=== PATIENT | female | born 1935 | race Caucasian/White ===

== ENCOUNTER 2017-03-14 04:59 | Inpatient (IN) | payer MEDICARE, MEDICAID ==
[2017-03-14] MEDS ORDERED: Scopolamine 1.5 MG Transdermal Patch TOP SCH (05:30)
[2017-03-14] MEDS ORDERED: Gabapentin 300 MG Cap PO ONE (05:30)
[2017-03-14] MEDS: Lactated Ringers 1,000 ML IV SCH ×3 (06:07→23:46)
[2017-03-14] MEDS ORDERED: Povidone-Iodine 10% Soln 118.25 ML Bottle ONE (06:32)
[2017-03-14] MEDS ORDERED: Thrombin (Bovine) 5,000 Unit Kit ONE (06:32)
[2017-03-14] MEDS ORDERED: Rocuronium 50 MG/5 ML Vial ONE (06:59)
[2017-03-14] MEDS ORDERED: Neostigmine Methylsulfate 1 MG/ML 5 ML Syringe ONE (06:59)
[2017-03-14] MEDS ORDERED: Glycopyrrolate 0.2 MG/ML 5 ML MDV ONE (06:59)
[2017-03-14] MEDS ORDERED: Ondansetron 4 MG/2 ML SDV ONE (06:59)
[2017-03-14] MEDS ORDERED: Dexamethasone 4 MG/ML SDV ONE (06:59)
[2017-03-14] MEDS ORDERED: Propofol 200 MG/20 ML SDV ONE (06:59)
[2017-03-14] MEDS ORDERED: Succinylcholine 200 MG/10 ML MDV ONE (06:59)
[2017-03-14] MEDS ORDERED: fentaNYL 250 MCG/5 ML SDV ONE (07:00)
[2017-03-14] MEDS ORDERED: ceFAZolin 2 GM in Sodium Chloride 0.9% 50 ML IV ONE (07:15)
[2017-03-14] MEDS ORDERED: Albuterol/Ipratropium 3.0-0.5 MG/3 ML Neb Soln NEB ONE (07:17)
[2017-03-14] MEDS ORDERED: Albuterol/Ipratropium 3.0-0.5 MG/3 ML Neb Soln ONE (07:19)
[2017-03-14] MEDS ORDERED: Ropivacaine 49.25 ML, Ketorolac 30 MG, EPINEPHrine 0.5 MG, cloNIDine 80 MCG, Sodium Chl... INJECT ONE ×5 (07:45)
[2017-03-14] MEDS ORDERED: Ketamine 500 MG/5 ML MDV IV SCH (07:45)
[2017-03-14] MEDS ORDERED: Naloxone 0.4 MG/ML SDV IVPUSH PRN ×2 (08:45→09:40)
[2017-03-14] MEDS ORDERED: Magnesium Hydroxide 400 MG/5 ML Susp 30 ML Cup PO PRN ×2 (08:45→09:40)
[2017-03-14] MEDS ORDERED: Sennosides 8.6 MG Tab PO PRN ×2 (08:45→09:40)
[2017-03-14] MEDS ORDERED: oxyCODONE 5 MG Tab PO PRN (08:45)
[2017-03-14] MEDS ORDERED: Zolpidem 5 MG Tab PO PRN ×2 (08:45→09:40)
[2017-03-14] MEDS ORDERED: HYDROmorphone 1 MG/ML Syringe IVPUSH PRN ×2 (08:45→09:40)
[2017-03-14] MEDS ORDERED: ceFAZolin 1 GM in Sodium Chloride 0.9% 50 ML IV SCH (08:45)
[2017-03-14] MEDS ORDERED: Aluminum Hydroxide/Magnesium Hydroxide/Simethicone Susp 30 ML Cup PO PRN ×2 (08:45→09:40)
[2017-03-14] MEDS ORDERED: Ondansetron 4 MG/2 ML SDV IVPUSH PRN ×2 (08:45→09:40)
[2017-03-14] MEDS ORDERED: ZOLPIDEM TARTRATE PO PRN ×2 (08:49→09:40)
[2017-03-14] MEDS ORDERED: METOPROLOL TARTRATE PO SCH (09:00)
[2017-03-14] MEDS ORDERED: Lisinopril 20 MG Tab PO SCH ×2 (09:00→09:45)
[2017-03-14] MEDS ORDERED: Albuterol/Ipratropium 3.0-0.5 MG/3 ML Neb Soln NEB SCH (09:00)
[2017-03-14] MEDS ORDERED: ROSUVASTATIN PO SCH (09:00)
[2017-03-14] MEDS ORDERED: Non-Formulary Medication 1 Each (Omega-3/Dha/Epa/Fish Oil [Omega-3 Fish Oil 1,000 Mg Sfgl] PO SCH (09:00)
[2017-03-14] MEDS ORDERED: amLODIPine 5 MG Tab PO SCH (09:00)
[2017-03-14] MEDS ORDERED: Non-Formulary Medication 1 Each (Multivitamin [Multivitamins] 1 TAB) PO SCH (09:00)
[2017-03-14] MEDS ORDERED: Acetaminophen 1,000 MG in Premix Bag 1 BAG IV ONE (09:30)
[2017-03-14] MEDS ORDERED: Diazepam 5 MG Tab PO PRN (09:40)
--- NOTE | 2017-03-14 09:42 | OR ---
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 PROCEDURE: L2-3 L laminectomy. TRAFFIC RECORDER: ERLIN Jim ANESTHESIA: General endotracheal intubation. FLUIDS: Lactated Ringer solution. ESTIMATED BLOOD LOSS: 25 mL. COMPLICATIONS: None. SPECIMEN: None. DISCHARGE DISPOSITION: Stable to PACU. INDICATION: The patient was seen preoperatively in the clinic. She had been suffering from neurogenic claudication and radicular symptoms. Preoperative imaging confirmed the above- mentioned diagnosis. Risks and benefits of the procedure were explained to the patient and informed consent was obtained. She had failed nonoperative treatment. DETAILS OF PROCEDURE: The patient was seen preoperatively by myself and the Anesthesia staff at the preoperative holding area. She received a nebulizer prior to being taken back to the OR. She was taken back to the OR by the Anesthesia staff, where general anesthesia was administered. She was then placed into a prone position on the Eron table. All extremities were found to be well padded. The bed was flexed. The back was then prepped and draped in a sterile manner. Time-out was called identifying the correct patient, the correct procedure and the correct site, and that antibiotics had begun within appropriate period of time. The sterilely draped fluoroscopy unit was then used in a lateral position to identify the L2-3 interspace. This was then marked. I then did a midline incision over the L2 and L3 spinous processes and then used Nyasia for retractor. Bleeding during the case was controlled with Bovie electrocautery as well as an Aquamantys 5.0 unit. I then used Bovie dissection with a Culp elevator over the spinous processes of L2 and L3 and over to their facets. I then inserted two 35 mm VersaTREK blades for retraction. I then confirmed my level with lateral fluoroscopy. I then removed the inferior spinous process of L2 and most of the superior spinous process of L3 as lamina. I removed most of the L2 lamina. I then encountered abundant ligamentum flavum, which was protecting the dura as well as significant epidural lipomatosis. We then removed as much of the ligamentum flavum as possible and then placed a long ball in the L2-3 foramina and took our confirmation films. I then copiously irrigated with saline, placed some FloSeal at the base of the wound and then gently tamped that with an open Ray-Lala. I then placed Gelfoam powder in the wound. We then closed the incision with #1 Stratafix as well as 3-0 Stratafix, followed by a sterile dressing. The patient was then flipped back into her hospital bed in supine position and taken to the PACU in a stable condition. Alex Lara DO /[id number]
[2017-03-14] MEDS ORDERED: Multivitamins with Iron/Calcium/Folic Acid/Minerals Tab PO SCH (09:45)
[2017-03-14] MEDS ORDERED: Rosuvastatin 10 MG Tab PO SCH (09:45)
[2017-03-14] MEDS ORDERED: Fish Oil/Omega-3 Fatty Acids 1 Gm Cap PO SCH (09:45)
[2017-03-14] MEDS: Levothyroxine 75 MCG Tab PO SCH (11:51)
[2017-03-14] MEDS: oxyCODONE 5 MG Tab PO PRN (12:47)
[2017-03-14] MEDS: Albuterol/Ipratropium 3.0-0.5 MG/3 ML Neb Soln NEB SCH ×4 (13:14→21:51)
[2017-03-14] MEDS: VERIFY SCOPOLAMINE PATCH TOP SCH (14:20)
[2017-03-14] MEDS: ceFAZolin 1 GM in Premix Bag 1 BAG IV SCH ×2 (14:24→21:51)
[2017-03-14] MEDS: Isosorbide Dinitrate 10 MG Tab PO SCH (16:45)
[2017-03-14] MEDS ORDERED: Metoprolol Tartrate 50 MG Tab PO SCH (21:00)
[2017-03-15] MEDS: Albuterol/Ipratropium 3.0-0.5 MG/3 ML Neb Soln NEB SCH ×3 (01:45→10:40)
[2017-03-15] MEDS: ceFAZolin 1 GM in Premix Bag 1 BAG IV SCH (05:04)
[2017-03-15] MEDS: oxyCODONE 5 MG Tab PO PRN (07:17)
[2017-03-15] MEDS: Isosorbide Dinitrate 10 MG Tab PO SCH (07:31)
[2017-03-15] MEDS: Levothyroxine 75 MCG Tab PO SCH (07:31)
[2017-03-15] MEDS: VERIFY SCOPOLAMINE PATCH TOP SCH (08:42)
[2017-03-15] MEDS ORDERED: Acetaminophen/oxyCODONE 325-5 MG Tab PO PRN ×2 (08:46→14:00)
[2017-03-15] MEDS ORDERED: Aspirin 81 MG Tab.EC PO SCH (09:00)
[2017-03-15] MEDS ORDERED: amLODIPine 5 MG Tab PO SCH (09:00)
[2017-03-15] MEDS ORDERED: Clopidogrel 75 MG Tab PO SCH (09:00)
--- NOTE | 2017-03-15 10:08 | CR ---
Cardiomegaly. Streaky densities within the lung bases have developed in may indicate infiltrate. Trac e pleural effusions. Mildly prominent perivascular congestion. Difficult to exclude a pulmonary nodul e right lung base. Recommend CT follow-up.
[2017-03-15] MEDS ORDERED: Sodium Chloride 0.9% 10 ML Syringe FLUSH PRN (11:00)
[2017-03-15] MEDS ORDERED: Iopamidol 755 Mg/ML 100 ML Bottle IV SCH (11:00)
[2017-03-15 11:27] VITALS: BP 107/57
--- NOTE | 2017-03-15 11:43 | CT ---
CTA chest. Total DLP 337. Findings: No pulmonary artery embolus. Upper limits of normal right hilar lymph node. Streaky densiti es within the bilateral lung bases more evident in the left than the right. Adrenal gland thickening. Proteinaceous cyst left kidney. Nodular masslike density projecting off the inferior aspect of the r ight lobe of the liver at 11 mm. Coronary artery calcifications. Atherosclerotic aorta. Impression: 1. No pulmonary artery embolus. 2. Upper limits of normal in size right hilar lymph node. 3. Streaky densities within the lung bases. Likely atelectasis. Developing infiltrate difficult to ex clude left lung base. 4. Small nodular density is indeterminate off the right lobe the liver. Consider nonemergent ultrasou nd follow-up.
--- NOTE | 2017-03-15 12:19 | PCM.CONS ---
H&P History of Present Illness - General Date of Service: 03/15/17 Admit Problem/Dx: Admission Diagnosis/Problem Admission Diagnosis/Problem Lumbar back pain with radiculopathy affecting left lower extremity Source of Information: Patient, Family, Provider, RN Notes Reviewed History Limitations: Reports: No Limitations - History of Present Illness Initial Comments - Free Text/Narative: Ms. Reynolds is an 81-year-old woman who I been asked to see by Dr. Rudi Lara for further suggestions concerning evaluation and management of hypoxia. She underwent a lumbar laminectomy yesterday performed by Dr. Lara. Thus far during her hospitalization has been noted to have significant hypoxia requiring the use of supplemental oxygen. At the present time she denies that she is having shortness of breath that is any different from her ongoing baseline. She reports at home that she becomes short of breath with fairly minimal exertion. She has been hemodynamically stable and afebrile, there is no evidence of fever or productive cough. She has 100 pack year smoking history and continued to smoke up until the time of this admission. Chest x-ray shows no obvious infiltrates and arterial blood gases showed no evidence of CO2 retention. CT scan of the chest was obtained and shows no evidence of pulmonary embolism or significant infiltrate. Lower Back Pain Score (Numeric/FACES): 6 - Related Data Allergies/Adverse Reactions: Allergies Allergy/AdvReac Type Severity Reaction Status Date / Time Sulfa (Sulfonamide Allergy Intermediate Swelling Verified 03/14/17 05:49 Antibiotics) Home Medications: Home Meds Acetaminophen [Tylenol Arthritis] 1 tab PO Q6H PRN 02/27/17 [History] Aspirin [Halfprin] 1 tab PO DAILY 02/27/17 [History] Clopidogrel [Plavix] 1 tab PO DAILY 02/27/17 [History] Isosorbide Dinitrate [Isordil] 1 tab PO BID 02/27/17 [History] Levothyroxine Sodium [Synthroid] 1 tab PO DAILY 02/27/17 [History] Lidocaine 5% [Lidoderm 5%] 1 patch TOP DAILY 02/27/17 [History] Lisinopril [Zestril] 20 mg PO DAILY 02/27/17 [History] Metoprolol Tartrate 1 tab PO BID 02/27/17 [History] Multivitamin [Multivitamins] 1 tab PO DAILY 02/27/17 [History] Naproxen [Naprosyn] 1 tab PO DAILY 02/27/17 [History] [place]-3/DHA/Epa/Fish Oil [[place]-3 Fish Oil 1,000 MG Sfgl] 1 cap PO DAILY [History] Rosuvastatin [Crestor] 1 tab PO DAILY 02/27/17 [History] Zolpidem Tartrate [Ambien] 1 tab PO BEDTIME PRN 02/27/17 [History] amLODIPine [Norvasc] 1 tab PO DAILY 02/27/17 [History] Acetaminophen/oxyCODONE [Percocet 325-5 MG] 1 tab PO Q6HR PRN #90 tablet [Rx] Past Medical History HEENT History: Reports: Hard of Hearing, Impaired Vision Cardiovascular History: Reports: High Cholesterol, Hypertension, Stents Gastrointestinal History: Reports: Colon Polyp Genitourinary History: Reports: Urinary Incontinence [employer] History: Reports: Musculoskeletal History: Reports: Arthritis, Back Pain, Chronic Endocrine/Metabolic History: Reports: Hypothyroidism Hematologic History: Reports: Anemia - Infectious Disease History Infectious Disease History: Reports: Chicken Pox - Past Surgical History Head Surgeries/Procedures: Reports: None HEENT Surgical History: Reports: None Cardiovascular Surgical History: Reports: Coronary Artery Stent GI Surgical History: Reports: Colostomy Female Surgical History: Reports: Hysterectomy Endocrine Surgical History: Reports: None Musculoskeletal Surgical History: Reports: None Dermatological Surgical History: Reports: None Social & Family History - Family History Family Medical History: Noncontributory - Tobacco Use Smoking Status *Q: Current Every Day Smoker Years of Tobacco use: 70 Packs/Tins Daily: 0.5 Used Tobacco, but Quit: No Second Hand Smoke Exposure: Yes - Caffeine Use Caffeine Use: Reports: Coffee, Tea - Alcohol Use Days Per Week of Alcohol Use: 0 - Recreational Drug Use Recreational Drug Use: No H&P Review of Systems - Review of Systems: Review Of Systems: See Below General: Denies: Fever, Chills, Diaphoresis Pulmonary: Reports: Shortness of Breath, Cough. Denies: Wheezing, Pleuritic Chest Pain, Sputum, Hemoptysis Cardiovascular: Reports: Dyspnea on Exertion. Denies: Chest Pain, Palpitations , Orthopnea, PND, Edema, Lightheadedness Gastrointestinal: Reports: No Symptoms Musculoskeletal: Reports: Back Pain Exam - Exam Exam: See Below - Vital Signs Vital Signs: Last Vital Signs Temp 98 F 03/15/17 11:25 Pulse 98 03/15/17 11:25 Resp 16 03/15/17 11:25 BP 107/57 L 03/15/17 11:25 Pulse Ox 92 L 03/15/17 11:25 Weight: 111 lb 3.995 oz - Exam Quality Assessment: Supplemental Oxygen, DVT Prophylaxis Neck: Supple, Trachea Midline, +2 Carotid Pulse wo Bruit Lungs: Decreased Breath Sounds. No: Rales, Rhonchi, Wheezing Cardiovascular: Regular Rate, Regular Rhythm, Normal S1, Normal S2, Systolic Murmur. No: Diastolic Murmur GI/Abdominal Exam: Normal Bowel Sounds, Soft, Non-Tender, No Distention Extremities: Non-Tender, No Pedal Edema Skin: Warm, Dry - Patient Data Lab Results Last 24 hrs: Laboratory Results - last 24 hr 03/15/17 03/15/17 03/15/17 Range/Units 05:00 05:00 08:41 WBC 11.5 H (4.5-11.0) K/uL RBC 3.76 (3.30-5.50) M/uL Hgb 12.2 D (12.0-15.0) g/dL Hct 36.4 (36.0-48.0) % MCV 97 (80-98) fL MCH 32 H (27-31) pg MCHC 34 (32-36) % Plt Count 139 L (150-400) K/uL Neut % (Auto) 82 H (36-66) % Lymph % (Auto) 9 L (24-44) % [place] % (Auto) 8 H (2-6) % Eos % (Auto) 0 L (2-4) % Baso % (Auto) 0 (0-1) % Puncture Site Rt radial ABG pH 7.460 H (7.350-7.450) ABG pCO2 34.8 L (35.0-42.0) mmHg ABG pO2 52.5 L (75.0-100.0) mmHg ABG HCO3 24.4 (22.0-26.0) mmol/L ABG Total CO2 21.9 (21.0-25.0) mmol/L ABG O2 Saturation 88.4 L (95.0-98.0) % ABG O2 Content 14.7 L (15.0-23.0) %vol ABG Base Excess 1.4 mm/L ABG Hemoglobin 12.0 (12.0-16.0) g/dL ABG Oxyhemoglobin 87.2 % ABG Carboxyhemoglobin 0.9 (0.0-1.6) % ABG Methemoglobin 0.5 % Kendall Test Pass O2 Delivery Device Nasal cannula Oxygen Flow Rate 3 L Sodium 139 L (140-148) mmol/L Potassium 4.1 (3.6-5.2) mmol/L Chloride 106 (100-108) mmol/L Carbon Dioxide 25 (21-32) mmol/L Anion Gap 12.1 (5.0-14.0) mmol/L BUN 12 (7-18) mg/dL Creatinine 0.8 (0.6-1.0) mg/dL Est Cr Clr Drug Dosing 42.88 mL/min Estimated GFR (MDRD) > 60 (>60) Glucose 116 H (74-106) mg/dL Calcium 9.3 (8.5-10.1) mg/dL Result Diagrams: 03/15/17 05:00 03/15/17 05:00 Consult PN Assessment/Plan Procedures: Procedures COMP SCREEN MAMMOGRAM ADD-ON (11/30/15) COMPLETE CBC AUTOMATED (03/01/17) COMPREHEN METABOLIC PANEL (03/01/17) CT LOWER EXTREMITY W/O DYE (06/01/13) CULTURE OTHR SPECIMN AEROBIC (03/01/17) ELECTROCARDIOGRAM REPORT (03/01/17) ELECTROCARDIOGRAM TRACING (03/01/17) EMERGENCY DEPT VISIT (06/01/13) MAMMOGRAM SCREENING (03/04/13) MRI LUMBAR SPINE W/O DYE (02/21/17) ROUTINE VENIPUNCTURE (03/01/17) UPR/L XTREMITY ART 2 LEVELS (11/30/15) X-RAY EXAM L-2 SPINE 4/>VWS (03/01/17) X-RAY EXAM OF HIP (06/01/13) X-RAY EXAM OF PELVIS (06/01/13) Problem List Initiated/Reviewed/Updated: Yes Plan: ASSESSMENT AND RECOMMENDATIONS STATUS POST LUMBAR LAMINECTOMY-postoperative course complicated by ongoing hypoxia as noted below -Postoperative care per Dr. Rudi Lara HYPOXIA-likely secondary to progressive and relatively long-standing COPD. Likely that she has been hypoxic at baseline prior to surgery. Evaluation today has included arterial blood gases which show hypoxia but no evidence of CO2 retention. Chest x-ray shows hyperinflation consistent with COPD. CT angiogram of the chest shows no evidence of pulmonary emboli, infiltrate, or pulmonary edema. -Plan for discharge to home with continuous supplemental oxygen -Follow-up with primary care as an outpatient LIVER NODULE IDENTIFIED ON CT SCAN -Follow-up as an outpatient with ultrasound Requesting Provider: LORIE Date Consult Requested: 03/15/17 Reason for Consult: Hypoxia Patient History Reviewed: Yes Notified Requestor: Yes
--- NOTE | 2017-03-15 12:56 | PCM.DCSUM1 ---
Discharge Summary - Discharge Data Discharge Date: 03/15/17 Discharge Disposition: Home, Self-Care 01 Condition: Good - Patient Summary/Data Operative Procedure(s) Performed: L2-3 lumbar laminectomy Consults: Consultations 03/14/17 08:46 OT Evaluation and Treatment [CONS] Routine Please Evaluate and Treat. OT Reason for Consult: Strengthening This query below is only for informational purposes and is not editable. PT Evaluation and Treatment [CONS] Routine Please Evaluate and Treat. PT Reason for Consult: Strengthening This query below is only for informational purposes and is not editable. - Patient Instructions Diet: Usual Diet as Tolerated Activity: As Tolerated, Full Weight Bearing, No Lifting Over 10 Pounds, No Strenuous Activities Driving: Do Not Drive Showering/Bathing: May Shower Wound/Incision Care: Keep Operative Site/Wound Site Clean and Dry, Change Dressing Daily - Discharge Plan Prescriptions/Med Rec: Acetaminophen/oxyCODONE [Percocet 325-5 MG] 1 tab PO Q6HR PRN #90 tablet PRN Reason: Pain Home Medications: Home Meds Acetaminophen [Tylenol Arthritis] 1 tab PO Q6H PRN 02/27/17 [History] Aspirin [Halfprin] 1 tab PO DAILY 02/27/17 [History] Clopidogrel [Plavix] 1 tab PO DAILY 02/27/17 [History] Isosorbide Dinitrate [Isordil] 1 tab PO BID 02/27/17 [History] Levothyroxine Sodium [Synthroid] 1 tab PO DAILY 02/27/17 [History] Lidocaine 5% [Lidoderm 5%] 1 patch TOP DAILY 02/27/17 [History] Lisinopril [Zestril] 20 mg PO DAILY 02/27/17 [History] Metoprolol Tartrate 1 tab PO BID 02/27/17 [History] Multivitamin [Multivitamins] 1 tab PO DAILY 02/27/17 [History] Naproxen [Naprosyn] 1 tab PO DAILY 02/27/17 [History] [place]-3/DHA/Epa/Fish Oil [[place]-3 Fish Oil 1,000 MG Sfgl] 1 cap PO DAILY [History] Rosuvastatin [Crestor] 1 tab PO DAILY 02/27/17 [History] Zolpidem Tartrate [Ambien] 1 tab PO BEDTIME PRN 02/27/17 [History] amLODIPine [Norvasc] 1 tab PO DAILY 02/27/17 [History] Acetaminophen/oxyCODONE [Percocet 325-5 MG] 1 tab PO Q6HR PRN #90 tablet [Rx] Patient Handouts: Lumbar Laminectomy and Anterior Cervical Fusion Referrals: lAex Lara DO [Physician] - 03/29/17 1:15 am - General Info Functional Status: Reports: Pain Controlled - Review of Systems General: Reports: No Symptoms HEENT: Reports: No Symptoms Pulmonary: Reports: No Symptoms Cardiovascular: Reports: No Symptoms Gastrointestinal: Reports: No Symptoms Genitourinary: Reports: No Symptoms Musculoskeletal: Reports: Back Pain Skin: Reports: No Symptoms Neurological: Reports: No Symptoms Psychiatric: Reports: No Symptoms - Patient Data Vitals - Most Recent: Last Vital Signs Temp 98 F 03/15/17 11:25 Pulse 98 03/15/17 11:25 Resp 16 03/15/17 11:25 BP 107/57 L 03/15/17 11:25 Pulse Ox 92 L 03/15/17 11:25 Weight - Most Recent: 111 lb 3.995 oz I&O - Last 24 hours: Intake & Output 03/14/17 03/15/17 03/15/17 22:59 06:59 14:59 Intake Total 1432 862 820 Output Total 450 1025 Balance 982 -163 820 Lab Results - Last 24 hrs: Laboratory Results - last 24 hr 03/15/17 03/15/17 03/15/17 Range/Units 05:00 05:00 08:41 WBC 11.5 H (4.5-11.0) K/uL RBC 3.76 (3.30-5.50) M/uL Hgb 12.2 D (12.0-15.0) g/dL Hct 36.4 (36.0-48.0) % MCV 97 (80-98) fL MCH 32 H (27-31) pg MCHC 34 (32-36) % Plt Count 139 L (150-400) K/uL Neut % (Auto) 82 H (36-66) % Lymph % (Auto) 9 L (24-44) % [place] % (Auto) 8 H (2-6) % Eos % (Auto) 0 L (2-4) % Baso % (Auto) 0 (0-1) % Puncture Site Rt radial ABG pH 7.460 H (7.350-7.450) ABG pCO2 34.8 L (35.0-42.0) mmHg ABG pO2 52.5 L (75.0-100.0) mmHg ABG HCO3 24.4 (22.0-26.0) mmol/L ABG Total CO2 21.9 (21.0-25.0) mmol/L ABG O2 Saturation 88.4 L (95.0-98.0) % ABG O2 Content 14.7 L (15.0-23.0) %vol ABG Base Excess 1.4 mm/L ABG Hemoglobin 12.0 (12.0-16.0) g/dL ABG Oxyhemoglobin 87.2 % ABG Carboxyhemoglobin 0.9 (0.0-1.6) % ABG Methemoglobin 0.5 % Kendall Test Pass O2 Delivery Device Nasal cannula Oxygen Flow Rate 3 L Sodium 139 L (140-148) mmol/L Potassium 4.1 (3.6-5.2) mmol/L Chloride 106 (100-108) mmol/L Carbon Dioxide 25 (21-32) mmol/L Anion Gap 12.1 (5.0-14.0) mmol/L BUN 12 (7-18) mg/dL Creatinine 0.8 (0.6-1.0) mg/dL Est Cr Clr Drug Dosing 42.88 mL/min Estimated GFR (MDRD) > 60 (>60) Glucose 116 H (74-106) mg/dL Calcium 9.3 (8.5-10.1) mg/dL Med Orders - Current: Current Medications Al Hydroxide/Mg Hydroxide (Mag-Al Plus) 30 ml PO Q4H PRN PRN Reason: Indigestion Albuterol/Ipratropium (Duoneb 3.0-0.5 Mg/3 Ml) 3 ml NEB Q4H [facility] Last Admin: 03/15/17 10:40 Dose: 3 ml Amlodipine Besylate (Norvasc) 5 mg PO DAILY [facility] Last Admin: 03/15/17 08:45 Dose: 5 mg Aspirin (Halfprin) 81 mg PO DAILY [facility] Last Admin: 03/15/17 08:42 Dose: 81 mg Clopidogrel Bisulfate (Plavix) 75 mg PO DAILY [facility] Last Admin: 03/15/17 08:45 Dose: 75 mg Diazepam (Valium.) 5 mg PO Q6H PRN PRN Reason: Spasms Fish Oil (Fish Oil) 1 gm PO DAILY [facility] Last Admin: 03/15/17 08:41 Dose: 1 gm Lactated Ringer's (Ringers, Lactated) 1,000 mls @ 0 mls/hr IV ASDIRECTED [facility] PRN Reason: KVO Last Admin: 03/14/17 23:46 Dose: 30 mls/hr Sodium Chloride (Normal Saline) 82 mls @ 3.5 mls/sec IV ASDIRECTED [facility] Stop: 03/15/17 13:00 Last Admin: 03/15/17 11:09 Dose: 3.5 mls/sec Iopamidol (Isovue-370 (76%)) 70 ml IV . DIRECTED [facility] Stop: 03/15/17 13:00 Last Admin: 03/15/17 11:09 Dose: 100 ml Isosorbide Dinitrate (Isordil) 10 mg PO BIDAC [facility] Last Admin: 03/15/17 07:31 Dose: 10 mg Levothyroxine Sodium (Levothyroxine) 75 mcg PO DAILY@0730 [facility] Last Admin: 03/15/17 07:31 Dose: 75 mcg Lisinopril (Prinivil) 20 mg PO DAILY [facility] Last Admin: 03/15/17 08:46 Dose: 20 mg Magnesium Hydroxide (Milk Of Magnesia) 30 ml PO BID PRN PRN Reason: Constipation Metoprolol Tartrate (Lopressor) 100 mg PO BID [facility] Last Admin: 03/15/17 08:43 Dose: Not Given Multivitamins/Minerals (Thera M Plus) 1 tab PO DAILY [facility] Last Admin: 03/15/17 08:46 Dose: 1 tab Naloxone HCl (Narcan) 0.2 mg IVPUSH ONETIME PRN PRN Reason: Oversedation Verify Scopolamine (Patch) 0 each TOP DAILY [facility] Last Admin: 03/15/17 08:42 Dose: Not Given Ondansetron HCl (Zofran) 8 mg IVPUSH Q4H PRN PRN Reason: Nausea/Vomiting Oxycodone/Acetaminophen (Percocet 325-5 Mg) 2 tab PO Q4H PRN PRN Reason: Pain Rosuvastatin Calcium (Crestor) 5 mg PO DAILY [facility] Last Admin: 03/15/17 08:44 Dose: 5 mg Scopolamine (Transderm-Scop) 1.5 mg TOP Q72H [facility] Stop: 03/17/17 03:30 Last Admin: 03/14/17 06:08 Dose: 1.5 mg Senna (Senna) 8.6 mg PO BID PRN PRN Reason: Constipation Sodium Chloride (Saline Flush) 10 ml FLUSH ONETIME PRN PRN Reason: per radiology protocol Stop: 03/15/17 13:00 Last Admin: 03/15/17 11:09 Dose: 10 ml Zolpidem Tartrate (Ambien) 5 mg PO BEDTIME PRN PRN Reason: Sleep Discontinued Medications Al Hydroxide/Mg Hydroxide (Mag-Al Plus) 30 ml PO Q4H PRN PRN Reason: Indigestion Albuterol/Ipratropium (Duoneb 3.0-0.5 Mg/3 Ml) 3 ml NEB ONETIME ONE Stop: 03/14/17 07:18 Last Admin: 03/14/17 07:23 Dose: 3 ml Albuterol/Ipratropium (Duoneb 3.0-0.5 Mg/3 Ml) Confirm Administered Dose 3 ml .ROUTE .STK-MED ONE Stop: 03/14/17 07:20 Last Admin: 03/14/17 11:50 Dose: Not Given Albuterol/Ipratropium (Duoneb 3.0-0.5 Mg/3 Ml) 3 ml NEB Q4H [facility] Last Admin: 03/14/17 13:29 Dose: Not Given Amlodipine Besylate (Norvasc) 5 mg PO DAILY [facility] Ropivacaine 49.25 ml/Ketorolac Tromethamine 30 mg/Epinephrine HCl 0.5 mg/ Clonidine HCl 80 mcg/ Sodium Chloride 48.45 ml 0 ml INJECT ONETIME ONE Stop: 03/14/17 07:46 Last Admin: 03/14/17 08:07 Dose: 100 ml Dexamethasone (Dexamethasone) Confirm Administered Dose 4 mg .ROUTE .STK-MED ONE Stop: 03/14/17 07:00 Diazepam (Valium) 5 mg IVPUSH Q6H PRN PRN Reason: Spasms Fentanyl (Sublimaze) Confirm Administered Dose 250 mcg .ROUTE .STK-MED ONE Stop: 03/14/17 07:01 Gabapentin (Neurontin) 300 mg PO ONETIME ONE Stop: 03/14/17 05:31 Last Admin: 03/14/17 06:08 Dose: 300 mg Glycopyrrolate (Robinul) Confirm Administered Dose 1 mg .ROUTE .STK-MED ONE Stop: 03/14/17 07:00 Hydromorphone HCl (Dilaudid) 1 mg IVPUSH Q2H PRN PRN Reason: Pain Stop: 03/15/17 08:46 Hydromorphone HCl (Dilaudid) 1 mg IVPUSH Q2H PRN PRN Reason: Pain Stop: 03/15/17 08:46 Tranexamic Acid 500 mg/ Sodium (Chloride) 55 mls @ 220 mls/hr IV Q3H [facility] Stop: 03/14/17 10:59 Last Admin: 03/14/17 07:17 Dose: 220 mls/hr Ketamine HCl 100 mg/ Sodium (Chloride) 100 mls @ 15 mls/hr IV ASDIRECTED [facility] Cefazolin Sodium 2 gm/ Sodium (Chloride) 50 mls @ 100 mls/hr IV ONETIME ONE Stop: 03/14/17 07:44 Last Admin: 03/14/17 07:17 Dose: 100 mls/hr Acetaminophen 1,000 mg/ Premix 100 mls @ 400 mls/hr IV NOW ONE Stop: 03/14/17 09:44 Last Admin: 03/14/17 09:43 Dose: 400 mls/hr Cefazolin Sodium 1 gm/ Sodium (Chloride) 50 mls @ 100 mls/hr IV Q8H [facility] Stop: 03/15/17 01:14 Last Admin: 03/14/17 13:29 Dose: Not Given Tranexamic Acid 500 mg/ Sodium (Chloride) 55 mls @ 220 mls/hr IV Q3H [facility] Stop: 03/14/17 09:14 Last Admin: 03/14/17 09:00 Dose: 220 mls/hr Cefazolin Sodium/Dextrose 1 gm (/ Premix) 50 mls @ 100 mls/hr IV Q8H [facility] Stop: 03/15/17 06:29 Last Admin: 03/15/17 05:04 Dose: 100 mls/hr Ketamine HCl (Ketalar) 25 mg IV ASDIRECTED [facility] Lisinopril (Prinivil) 20 mg PO DAILY [facility] Last Admin: 03/14/17 13:30 Dose: Not Given Magnesium Hydroxide (Milk Of Magnesia) 30 ml PO BID PRN PRN Reason: Constipation Naloxone HCl (Narcan) 0.2 mg IVPUSH ONETIME PRN PRN Reason: Oversedation Neostigmine Methylsulfate (Neostigmine) Confirm Administered Dose 5 mg .ROUTE .STK-MED ONE Stop: 03/14/17 07:00 Non-Formulary Medication (Metoprolol Tartrate [Metoprolol Tartrate]) 1 tab PO BID [facility] Last Admin: 03/14/17 13:30 Dose: Not Given Non-Formulary Medication (Multivitamin [Multivitamins]) 1 tab PO DAILY [facility] Last Admin: 03/14/17 13:30 Dose: Not Given Non-Formulary Medication ([place]-3/Dha/Epa/Fish Oil [[place]-3 Fish Oil 1,000 Mg Sfgl]) 1 cap PO DAILY [facility] Last Admin: 03/14/17 13:30 Dose: Not Given Non-Formulary Medication (Rosuvastatin [Crestor]) 1 tab PO DAILY [facility] Last Admin: 03/14/17 13:29 Dose: Not Given Non-Formulary Medication (Zolpidem Tartrate [Ambien]) 1 tab PO BEDTIME PRN PRN Reason: Insomnia Non-Formulary Medication (Zolpidem Tartrate [Ambien]) 1 tab PO BEDTIME PRN PRN Reason: Insomnia Ondansetron HCl (Zofran) Confirm Administered Dose 4 mg .ROUTE .STK-MED ONE Stop: 03/14/17 07:00 Ondansetron HCl (Zofran) 8 mg IVPUSH Q4H PRN PRN Reason: Nausea/Vomiting Oxycodone HCl (Oxycodone) 10 mg PO Q4H PRN PRN Reason: Pain Stop: 03/15/17 08:46 Oxycodone HCl (Oxycodone) 10 mg PO Q4H PRN PRN Reason: Pain Stop: 03/15/17 08:46 Last Admin: 03/15/17 07:17 Dose: 10 mg Oxycodone/Acetaminophen (Percocet 325-5 Mg) 2 tab PO Q4H PRN PRN Reason: Pain Povidone Iodine (Betadine 10% Soln) Confirm Administered Dose 1 ml .ROUTE .STK- MED ONE Stop: 03/14/17 06:33 Last Admin: 03/14/17 07:57 Dose: 40 ml Propofol (Diprivan 20 Ml) Confirm Administered Dose 200 mg .ROUTE .STK-MED ONE Stop: 03/14/17 07:00 Rocuronium [place] (Zemuron) Confirm Administered Dose 50 mg .ROUTE .STK-MED ONE Stop: 03/14/17 07:00 Senna (Senna) 8.6 mg PO BID PRN PRN Reason: Constipation Succinylcholine Chloride (Quelicin) Confirm Administered Dose 200 mg .ROUTE .STK -MED ONE Stop: 03/14/17 07:00 Thrombin (Thrombin-Jmi) Confirm Administered Dose 15,000 unit .ROUTE .STK-MED ONE Stop: 03/14/17 06:33 Last Admin: 03/14/17 07:57 Dose: 10,000 unit Zolpidem Tartrate (Ambien) 5 mg PO BEDTIME PRN PRN Reason: Sleep - Exam General: Reports: Alert, Oriented HEENT: Reports: Pupils Equal, Pupils Reactive, EOMI, Mucous Membr. Moist/[place] Neck: Reports: Supple Lungs: Reports: Normal Respiratory Effort, Wheezing Back Exam: Reports: Normal Inspection, Decreased Range of Motion, Paraspinal Tenderness Extremities: Normal Inspection Skin: Reports: Warm, Dry, Intact Wound/Incisions: Reports: Dressing Dry and Intact, No Drainage Neurological: Reports: No New Focal Deficit Psy/Mental Status: Reports: Alert, Normal Affect, Normal Mood Discharge Operative/Procedures - Procedures Performed Operations: L2-3 lumbar laminectomy *Q Meaningful Use (DIS) - VTE *Q VTE Criteria *Q: - Stroke *Q Stroke Criteria *Q: - AMI *Q AMI Criteria *Q:
== END 2017-03-15 14:03 | disposition home or self-care (01) | DRG 517 ==
LOC: JP.SDS 04:59 → JP.SDSSCHI 04:59 → JP.MS 08:45 → EDSTATUS 09:00
PROVIDERS: ADMIT Orthopaedic Surgery; ATTEND Orthopaedic Surgery
PROC: 0QB00ZZ Excision of Lumbar Vertebra, Open Approach (ICD-10-PCS; principal; 2017-03-14)
DX: M48.062 Spinal stenosis, lumbar region with neurogenic claudication (principal); I10 Essential (primary) hypertension; R09.02 Hypoxemia; Z87.891 Personal history of nicotine dependence; J44.9 Chronic obstructive pulmonary disease, unspecified; Z98.1 Arthrodesis status; K76.89 Other specified diseases of liver; M54.9 Dorsalgia, unspecified; G89.29 Other chronic pain; Z95.5 Presence of coronary angioplasty implant and graft; E03.9 Hypothyroidism, unspecified; E78.00 Pure hypercholesterolemia, unspecified; H91.90 Unspecified hearing loss, unspecified ear; H54.7 Unspecified visual loss; Z79.82 Long term (current) use of aspirin; Z88.2 Allergy status to sulfonamides
CPT/HCPCS: 36415; 36600; 71020; 71020-26; 71275; 71275-26; 76001; 80048; 82803; 85025; 85610; 94640; 94762; 97162-GP; 97165-GO; 97530-GP; 97535-GP; A9270-GY; J0131; J0171; J0330; J0690; J0735; J1100; J1885; J2405; J2704; J2710; J2795; J3010; J7030; J7050; J7120; J7620; Q9967

== ENCOUNTER 2021-04-07 14:00 | Emergency (ER) | payer MEDICARE, MEDICAID ==
[2021-04-07 14:48] VITALS: BP 162/77; PULSE 45
--- NOTE | 2021-04-07 15:21 | EDM.PDOC ---
ED HPI GENERAL MEDICAL PROBLEM - General Chief Complaint: General Stated Complaint: MEDICAL VIA NORTH Time Seen by Provider: 04/07/21 15:12 Source of Information: Reports: Patient, EMS, RN Notes Reviewed History Limitations: Reports: No Limitations - History of Present Illness INITIAL COMMENTS - FREE TEXT/NARRATIVE: 85-year-old female presents emergency department today via EMS services, she lives at home cares for her son at home. States she does have chronic hip pain she believes she may have overdone it today and strained her hip had severe pain let herself down to the ground and had difficulty getting back up. She denies falling. Was evaluated by home health nurse at home who then called the ambulance for further assistance Right Hip Pain Score (Numeric/FACES): 8 - Related Data Allergies Allergy/AdvReac Type Severity Reaction Status Date / Time Sulfa (Sulfonamide Allergy Intermediate Swelling Verified 04/07/21 14:47 Antibiotics) Home Meds: Home Meds Acetaminophen [Tylenol Arthritis] 650 mg PO Q6H PRN 02/27/17 [History] Aspirin [Halfprin] 81 mg PO DAILY 02/27/17 [History] Clopidogrel [Plavix] 75 mg PO DAILY 02/27/17 [History] Isosorbide Dinitrate [Isordil] 10 mg PO BID 02/27/17 [History] Levothyroxine Sodium [Synthroid] 75 mcg PO DAILY 02/27/17 [History] Metoprolol Tartrate 100 mg PO BID 02/27/17 [History] Multivitamin [Multivitamins] 1 tab PO DAILY 02/27/17 [History] Naproxen [Naprosyn] 375 mg PO DAILY 02/27/17 [History] [place]-3/DHA/Epa/Fish Oil [[place]-3 Fish Oil 1,000 MG Sfgl] 1,000 mg PO DAILY 02/27/17 [History] Rosuvastatin [Crestor] 5 mg PO DAILY 02/27/17 [History] amLODIPine [Norvasc] 5 mg PO DAILY 02/27/17 [History] lisinopriL [Zestril] 20 mg PO DAILY 02/27/17 [History] traMADol [Ultram] 50 mg PO Q6H PRN 11/15/17 [History] Methyl Salicylate/Menthol [Salonpas Patch] 1 each TP ASDIRECTED 04/07/21 [History] Past Medical History HEENT History: Reports: Hard of Hearing, Impaired Vision Cardiovascular History: Reports: CAD, High Cholesterol, Hypertension, Stents Gastrointestinal History: Reports: Colon Polyp Genitourinary History: Reports: Urinary Incontinence 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: Musculoskeletal History: Reports: Arthritis, Back Pain, Chronic, Other (See Below) Other Musculoskeletal History: s/p lami L2-L3 Endocrine/Metabolic History: Reports: Hypothyroidism Hematologic History: Reports: Anemia - Infectious Disease History Infectious Disease History: Reports: Chicken Pox - Past Surgical History Head Surgeries/Procedures: Reports: None HEENT Surgical History: Reports: None Cardiovascular Surgical History: Reports: Coronary Artery Stent GI Surgical History: Reports: Colostomy Female Surgical History: Reports: Hysterectomy Endocrine Surgical History: Reports: None Musculoskeletal Surgical History: Reports: None Dermatological Surgical History: Reports: None Social & Family History - Family History Family Medical History: No Pertinent Family History - Tobacco Use Tobacco Use Status *Q: Current Every Day Tobacco User Years of Tobacco use: 60 Packs/Tins Daily: 0.5 - Caffeine Use Caffeine Use: Reports: Coffee - Recreational Drug Use Recreational Drug Use: No ED ROS GENERAL - Review of Systems Review Of Systems: See Below Constitutional: Reports: No Symptoms Respiratory: Reports: No Symptoms Cardiovascular: Reports: No Symptoms Musculoskeletal: Reports: Joint Pain (Hip pain right side) ED EXAM, GENERAL - Physical Exam Exam: See Below Free Text/Narrative:: Examination of the right leg I do not appreciate any erythema there is no edema palpation of the knee I cannot elicit any point tenderness however there is point tenderness over the greater trochanter on the hip does not tolerate flexion or extension well Exam Limited By: No Limitations General Appearance: Alert, WD/WN, No Apparent Distress #1 Interpretation EKG Date: 04/07/21 Time: 15:18 Rhythm: NSR Rate (Beats/Min): 47 (tamara) Dutton: LAD-Left Dutton Deviation P-Wave: Present QRS: Normal ST-T: Normal QT: Normal Comparison: NA - No Prior EKG Course - Vital Signs Last Recorded V/S: Last Vital Signs Temp 97.9 F 04/07/21 14:45 Pulse 45 L 04/07/21 14:45 Resp 16 04/07/21 14:45 BP 162/77 H 04/07/21 14:45 Pulse Ox 96 04/07/21 14:45 - Orders/Labs/Meds Orders: Active Orders 24 hr Category Date Time Status EKG 12 Lead [EK] Stat Ther 04/07/21 14:18 Ordered Departure - Departure Time of Disposition: 16:55 Disposition: Home, Self-Care 01 Condition: Fair Clinical Impression: Primary osteoarthritis of right hip - Discharge Information Instructions: Osteoarthritis Referrals: PCP,Unknown [Primary Care Provider] - Forms: ED Department Discharge Additional Instructions: Continue with your regular medications, please followup with your primary care provider in 3-5 days if not better, please call return to the emergency department with worsening of symptoms. Sepsis Event Note (ED) - Evaluation Sepsis Screening Result: No Definite Risk - Focused Exam Vital Signs: Vital Signs Temp Pulse Resp BP Pulse Ox 04/07/21 14:45 97.9 F 45 L 16 162/77 H 96 - My Orders Last 24 Hours: My Active Orders 04/07/21 14:18 EKG 12 Lead [EK] Stat - Assessment/Plan Last 24 Hours: My Active Orders 04/07/21 14:18 EKG 12 Lead [EK] Stat Plan: Assessment Acuity = acute Site and laterality = severe right hip pain Etiology = severe arthritis Manifestations = none Location of injury = Home Lab values = x-rays reveal severe arthritis in the hip no acute process other than arthritis in the knee Plan Talked her about hip replacement referral to orthopedics which she declined, she will continue to use her tramadol as needed for pain control follow-up with primary care This note was dictated using [employer] voice recognition software please call with any questions on syntax or grammar.
--- NOTE | 2021-04-07 16:15 | CRLCR ---
For Patients: As a result of the Century Cures Act, medical imaging exams and procedure reports are released immediately into your electronic medical record. You may view this report before your referring provider. If you have questions, please contact your health care provider. Indication: Pain. Technique: Right knee 3 views. Comparison: None. Findings: Bones: Alignment is normal. No fractures or bone lesions. Joint spaces: Minimal arthritic changes. No joint effusion. No other specific finding to explain pain. Soft tissues: Unremarkable. Dictated by Checo Albert MD @ 04/07/2021 4:14:33 PM (Electronically Signed)
--- NOTE | 2021-04-07 16:20 | CRLCR ---
For Patients: As a result of the Cures Act, medical imaging exams and procedure reports are released immediately into your electronic medical record. You may view this report before your referring provider. If you have questions, please contact your health care provider. Indication: Pain. Technique: Right hip 2 views. Comparison: None. Findings: Bones: Alignment is normal. No fractures or bone lesions. Joint spaces: Severe hip joint arthritis. No other specific finding to explain pain. Soft tissues: Unremarkable. Dictated by Checo Albert MD @ 04/07/2021 4:17:30 PM (Electronically Signed)
== END 2021-04-07 17:28 | disposition home or self-care (01) ==
LOC: JP.ED 14:00
DX: M16.11 Unilateral primary osteoarthritis, right hip (principal); I25.10 Atherosclerotic heart disease of native coronary artery without angina pectoris; E78.00 Pure hypercholesterolemia, unspecified; I10 Essential (primary) hypertension; E03.9 Hypothyroidism, unspecified; Z95.5 Presence of coronary angioplasty implant and graft; Z72.0 Tobacco use; Z88.2 Allergy status to sulfonamides; Z79.82 Long term (current) use of aspirin; Z79.899 Other long term (current) drug therapy; Z79.02 Long term (current) use of antithrombotics/antiplatelets
CPT/HCPCS: 73502-RT; 73562-RT; 93005; 99284-25

== ENCOUNTER 2021-04-15 12:54 | Emergency (ER) | payer MEDICARE, MEDICAID ==
[2021-04-15 13:11] VITALS: BP 151/67; PULSE 56
--- NOTE | 2021-04-15 13:19 | EDM.PDOC ---
ED HPI GENERAL MEDICAL PROBLEM - General Chief Complaint: General Stated Complaint: MEDICAL VIA NORTH Time Seen by Provider: 04/15/21 13:09 Source of Information: Reports: Patient, EMS, Old Records History Limitations: Reports: No Limitations - History of Present Illness INITIAL COMMENTS - FREE TEXT/NARRATIVE: Mahin is an 85-year-old female brought in by EMS for medical clearance for admission to [facility] in [place], [place]. The patient was recently hospitalized here and was discharged home to be cared for by her daughter, however, this has been unsuccessful prompting social work therapist to get involved in placement of the patient and to a skilled care facility. The patient has a history for COPD and continues to smoke. She does have increasing shortness of breath with activity. She is not really able to care for herself at home and her daughter has been having difficulty in caring for her prompting the need for placement. She is here solely for medical clearance to go to the skilled care facility. Right Hip Pain Score (Numeric/FACES): 4 - Related Data Allergies Allergy/AdvReac Type Severity Reaction Status Date / Time Sulfa (Sulfonamide Allergy Intermediate Swelling Verified 04/07/21 14:47 Antibiotics) Home Meds: Home Meds Acetaminophen [Tylenol Arthritis] 650 mg PO Q6H PRN 02/27/17 [History] Aspirin [Halfprin] 81 mg PO DAILY 02/27/17 [History] Clopidogrel [Plavix] 75 mg PO DAILY 02/27/17 [History] Isosorbide Dinitrate [Isordil] 10 mg PO BID 02/27/17 [History] Levothyroxine Sodium [Synthroid] 75 mcg PO DAILY 02/27/17 [History] Metoprolol Tartrate 100 mg PO BID 02/27/17 [History] Multivitamin [Multivitamins] 1 tab PO DAILY 02/27/17 [History] Naproxen [Naprosyn] 375 mg PO DAILY 02/27/17 [History] [place]-3/DHA/Epa/Fish Oil [[place]-3 Fish Oil 1,000 MG Sfgl] 1,000 mg PO DAILY 02/27/17 [History] Rosuvastatin [Crestor] 5 mg PO DAILY 02/27/17 [History] amLODIPine [Norvasc] 5 mg PO DAILY 02/27/17 [History] lisinopriL [Zestril] 20 mg PO DAILY 02/27/17 [History] traMADol [Ultram] 50 mg PO Q6H PRN 11/15/17 [History] Methyl Salicylate/Menthol [Salonpas Patch] 1 each TP ASDIRECTED 04/07/21 [History] Dimethicone/Zinc Oxide [Rash Relief-Zinc Oxide [place]] 128 gm TP QID 04/15/21 [History] Past Medical History HEENT History: Reports: Hard of Hearing, Impaired Vision Cardiovascular History: Reports: CAD, High Cholesterol, Hypertension, Stents Gastrointestinal History: Reports: Colon Polyp Genitourinary History: Reports: Urinary Incontinence 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: Musculoskeletal History: Reports: Arthritis, Back Pain, Chronic, Other (See Below) Other Musculoskeletal History: s/p lami L2-L3 Endocrine/Metabolic History: Reports: Hypothyroidism Hematologic History: Reports: Anemia - Infectious Disease History Infectious Disease History: Reports: Chicken Pox - Past Surgical History Head Surgeries/Procedures: Reports: None HEENT Surgical History: Reports: None Cardiovascular Surgical History: Reports: Coronary Artery Stent GI Surgical History: Reports: Colostomy Female Surgical History: Reports: Hysterectomy Endocrine Surgical History: Reports: None Musculoskeletal Surgical History: Reports: None Dermatological Surgical History: Reports: None Social & Family History - Family History Family Medical History: No Pertinent Family History - Tobacco Use Tobacco Use Status *Q: Current Every Day Tobacco User Years of Tobacco use: 60 Packs/Tins Daily: 0.5 - Caffeine Use Caffeine Use: Reports: Coffee - Recreational Drug Use Recreational Drug Use: No ED ROS GENERAL - Review of Systems Review Of Systems: See Below Constitutional: Reports: Chills (Chronic chills), Weakness (Generalized weakness), Fatigue, Decreased Appetite (Early satiety) HEENT: Reports: No Symptoms Respiratory: Reports: Shortness of Breath (Chronic dyspnea, patient has COPD and continues to smoke) Cardiovascular: Reports: Dyspnea on Exertion (Noticed especially while going up steps) Endocrine: Reports: Fatigue GI/Abdominal: Reports: No Symptoms : Reports: Other (Significant maceration of her buttocks and perineal area) Musculoskeletal: Reports: No Symptoms Skin: Reports: Lesions (Significant skin breakdown in the perineal area with a grade 2 ulcer on the left buttock) Neurological: Reports: Weakness (Generalized weakness) Psychiatric: Reports: Anxiety Hematologic/Lymphatic: Reports: No Symptoms ED EXAM, GENERAL - Physical Exam Exam: See Below Exam Limited By: No Limitations General Appearance: Alert, Anxious, Cachetic Eye Exam: Bilateral Eye: EOMI, PERRL Nose: Normal Inspection Throat/Mouth: Normal Inspection, Normal Oropharynx, Normal Voice, No Airway Compromise, Other (Patient missing her dentures) Head: Atraumatic, Normocephalic Neck: Normal Inspection, Supple. No: Carotid Bruit, Lymphadenopathy (R), Lymphadenopathy (L) Respiratory/Chest: No Accessory Muscle Use, Decreased Breath Sounds (Diminished breath sounds in the bases), Wheezing (Scant inspiratory wheezes with prolonged expiratory phase and expiratory wheezes), Prolonged Expiration. No: Retractions Cardiovascular: Normal Peripheral Pulses, Regular Rate, Rhythm, No Murmur Peripheral Pulses: 2+: Radial (L), Radial (R) GI/Abdominal: Normal Bowel Sounds, Soft, Non-Tender Extremities: Normal Inspection, No Pedal Edema Neurological: Alert, Oriented, Normal Cognition, No Motor/Sensory Deficits Psychiatric: Normal Affect, Normal Mood Skin Exam: Decubitus (Decubitus ulcer on the left buttocks about 2 cm in diameter (grade 2)), Erythema (Erythema and skin breakdown/maceration in the entire perineal area) Course - Vital Signs Last Recorded V/S: Last Vital Signs Temp 35.9 C L 04/15/21 13:10 Pulse 56 L 04/15/21 13:10 Resp 20 04/15/21 13:10 BP 151/67 H 04/15/21 13:10 Pulse Ox 97 04/15/21 13:10 - Orders/Labs/Meds Orders: Active Orders 24 hr Category Date Time Status Dimethicone/Zinc Oxide [Rash Relief-Zinc Oxide [place]] Med 04/15/21 13:45 Active 1 gm TOP ASDIRECTED PRN Medication Orders Dimethicone/Zinc Oxide (Dimethicone 20%/Zinc Oxide 25% 56 Gm [place] Bottle) 1 gm TOP ASDIRECTED PRN PRN Reason: buttock break down Last Admin: 04/15/21 14:07 Dose: 3 sprays Documented by: MIGUEL ANGEL Labs: Laboratory Tests 04/15/21 04/15/21 04/15/21 Range/Units 13:08 13:09 13:09 WBC 9.2 (4.5-11.0) K/uL RBC 4.57 (3.30-5.50) M/uL Hgb 14.3 D (12.0-15.0) g/dL Hct 42.7 (36.0-48.0) % MCV 93 (80-98) fL MCH 31 (27-31) pg MCHC 34 (32-36) % Plt Count 197 (150-400) K/uL Neut % (Auto) 68.2 H (36-66) % Lymph % (Auto) 13.4 L (24-44) % [place] % (Auto) 9.6 H (2-6) % Eos % (Auto) 7.9 H (2-4) % Baso % (Auto) 0.9 (0-1) % Sodium (140-148) mmol/L Potassium (3.6-5.2) mmol/L Chloride (100-108) mmol/L Carbon Dioxide (21-32) mmol/L Anion Gap (5.0-14.0) mmol/L BUN (7-18) mg/dL Creatinine (0.6-1.0) mg/dL Est Cr Clr Drug Dosing mL/min Estimated GFR (MDRD) (>60) Glucose (74-106) mg/dL Calcium (8.5-10.1) mg/dL C-Reactive Protein (0.0-0.3) mg/dL Urine Color Yellow (YELLOW) Urine Appearance Cloudy A (CLEAR) Urine pH 6.5 (5.0-8.0) Ur Specific [place] 1.020 (1.008-1.030) Urine Protein Negative (NEGATIVE) mg/dL Urine Glucose (UA) Negative (NEGATIVE) mg/dL Urine Ketones Negative (NEGATIVE) mg/dL Urine Occult Blood Trace-intact H (NEGATIVE) Urine Nitrite Negative (NEGATIVE) Urine Bilirubin Negative (NEGATIVE) Urine Urobilinogen 1.0 (0.2-1.0) EU/dL Ur Leukocyte Esterase Small H (NEGATIVE) Urine RBC 0-5 (0-5) Urine WBC 0-5 (0-5) Ur Epithelial Cells Few Amorphous Sediment Few Urine Bacteria Many Urine Mucus Not seen SARS CoV-2 RNA Rapid ARNOL Negative 04/15/21 Range/Units 13:09 WBC (4.5-11.0) K/uL RBC (3.30-5.50) M/uL Hgb (12.0-15.0) g/dL Hct (36.0-48.0) % MCV (80-98) fL MCH (27-31) pg MCHC (32-36) % Plt Count (150-400) K/uL Neut % (Auto) (36-66) % Lymph % (Auto) (24-44) % [place] % (Auto) (2-6) % Eos % (Auto) (2-4) % Baso % (Auto) (0-1) % Sodium 142 (140-148) mmol/L Potassium 4.2 (3.6-5.2) mmol/L Chloride 105 (100-108) mmol/L Carbon Dioxide 27 (21-32) mmol/L Anion Gap 10.5 (5.0-14.0) mmol/L BUN 17 (7-18) mg/dL Creatinine 0.8 (0.6-1.0) mg/dL Est Cr Clr Drug Dosing 33.25 mL/min Estimated GFR (MDRD) > 60 (>60) Glucose 96 (74-106) mg/dL Calcium 10.5 H (8.5-10.1) mg/dL C-Reactive Protein 2.55 H (0.0-0.3) mg/dL Urine Color (YELLOW) Urine Appearance (CLEAR) Urine pH (5.0-8.0) Ur Specific [place] (1.008-1.030) Urine Protein (NEGATIVE) mg/dL Urine Glucose (UA) (NEGATIVE) mg/dL Urine Ketones (NEGATIVE) mg/dL Urine Occult Blood (NEGATIVE) Urine Nitrite (NEGATIVE) Urine Bilirubin (NEGATIVE) Urine Urobilinogen (0.2-1.0) EU/dL Ur Leukocyte Esterase (NEGATIVE) Urine RBC (0-5) Urine WBC (0-5) Ur Epithelial Cells Amorphous Sediment Urine Bacteria Urine Mucus SARS CoV-2 RNA Rapid ARNOL Meds: Medications Generic Name Dose Route Start Last Admin Trade Name Freq PRN Reason Stop Dose Admin Dimethicone/Zinc Oxide 1 gm 04/15/21 13:45 04/15/21 14:07 Dimethicone 20%/Zinc Oxide 25% 56 Gm [place] Bottle TOP 3 sprays ASDIRECTED PRN Administration buttock break down - Re-Assessments/Exams Free Text/Narrative Re-Assessment/Exam: 04/15/21 14:04 the patient's labs showing a normal CBC and basic metabolic profile. The C-reactive protein is mildly elevated 2.55. Her calcium is mildly elevated at 10.5. Her Covid 19 test is negative. Urinalysis was obtained showing small leukocyte Estrace but 0-5 RBCs and 0-5 WBCs. This is unlikely to be any significant urinary tract infection. The patient is medically cleared for admission to the skilled care facility. Departure - Departure Time of Disposition: 14:09 Disposition: DC/Tfer to [facility] Clinical Impression: Encounter for medical assessment, Generalized weakness, Unable to care for self, Decubitus ulcer of left buttock, stage 2, Skin ulcer of perineum, limited to breakdown of skin - Discharge Information Instructions: Deconditioning, Weakness Referrals: PCP,Unknown [Primary Care Provider] - Forms: ED Department Discharge Care Plan Goals: Patient is medically screened and cleared for admission to [facility]. Sepsis Event Note (ED) - Evaluation Sepsis Screening Result: No Definite Risk - Focused Exam Vital Signs: Vital Signs Temp Pulse Resp BP Pulse Ox 04/15/21 13:10 35.9 C L 56 L 20 151/67 H 97 - Problem List & Annotations (1) Encounter for medical assessment SNOMED Code(s): 626487011 Code(s): Z00.8 - ENCOUNTER FOR OTHER GENERAL EXAMINATION Status: Acute Priority: Medium Current Visit: Yes (2) Generalized weakness SNOMED Code(s): 27455775 Code(s): R53.1 - WEAKNESS Status: Acute Priority: Medium Current Visit: Yes (3) Unable to care for self SNOMED Code(s): 921038920, 541827189 Code(s): Z78.9 - OTHER SPECIFIED HEALTH STATUS Status: Acute Priority: High Current Visit: Yes (4) Type 2 diabetes mellitus SNOMED Code(s): 93659428 Code(s): E11.9 - TYPE 2 DIABETES MELLITUS WITHOUT COMPLICATIONS Status: Chronic Priority: Medium Current Visit: No (5) Essential hypertension SNOMED Code(s): 19831419 Code(s): I10 - ESSENTIAL (PRIMARY) HYPERTENSION Status: Chronic Priority: Medium Current Visit: No (6) Pure hypercholesterolemia SNOMED Code(s): 461445369 Code(s): E78.00 - PURE HYPERCHOLESTEROLEMIA, UNSPECIFIED Status: Chronic Priority: Medium Current Visit: No (7) Decubitus ulcer of left buttock, stage 2 SNOMED Code(s): 11861721863231296, 90052656765646914 Code(s): L89.322 - PRESSURE ULCER OF LEFT BUTTOCK, STAGE 2 Status: Acute Priority: High Current Visit: Yes (8) Skin ulcer of perineum, limited to breakdown of skin SNOMED Code(s): 44345637, 094492071, 126867630 Code(s): L98.491 - NON-PRS CHRONIC ULCER SKIN/ SITES LIMITED TO BRKDWN SKIN Status: Acute Priority: High Current Visit: Yes - Problem List Review Problem List Initiated/Reviewed/Updated: Yes - My Orders Last 24 Hours: My Active Orders 04/15/21 13:45 Dimethicone/Zinc Oxide [Rash Relief-Zinc Oxide [place]] 1 gm TOP ASDIRECTED PRN - Assessment/Plan Last 24 Hours: My Active Orders 04/15/21 13:45 Dimethicone/Zinc Oxide [Rash Relief-Zinc Oxide [place]] 1 gm TOP ASDIRECTED PRN
[2021-04-15] MEDS ORDERED: Dimethicone 20%/Zinc Oxide 25% 56 GM Spray Bottle TOP PRN (13:45)
== END 2021-04-15 14:59 ==
LOC: JP.ED 12:54
DX: L89.322 Pressure ulcer of left buttock, stage 2 (principal); L98.491 Non-pressure chronic ulcer of skin of other sites limited to breakdown of skin; R53.1 Weakness; R79.82 Elevated C-reactive protein (CRP); I25.10 Atherosclerotic heart disease of native coronary artery without angina pectoris; E78.00 Pure hypercholesterolemia, unspecified; I10 Essential (primary) hypertension; M19.90 Unspecified osteoarthritis, unspecified site; E03.9 Hypothyroidism, unspecified; Z72.0 Tobacco use; Z88.2 Allergy status to sulfonamides; Z79.82 Long term (current) use of aspirin; Z79.02 Long term (current) use of antithrombotics/antiplatelets; Z79.899 Other long term (current) drug therapy; Z20.822 Contact with and (suspected) exposure to COVID-19
CPT/HCPCS: 36415; 80048; 81001; 85025; 86140; 99285; U0002